=== PATIENT | male | born 1960 | race Caucasian/White ===

== ENCOUNTER 2018-08-18 09:18 | Outpatient (CLI) | payer BC ==
[2018-08-18 17:55] LABS: BASOPHILS % (AUTO) 0.9 %; EOSINOPHILS # (AUTO) 0.4 10^3/uL (0.0-0.7); EOSINOPHILS % (AUTO) 8.9 %; HGB - HEMOGLOBIN 12.5 g/dL (14.0-18.0); LYMPHOCYTES # (AUTO) 1.6 10^3/uL (1.5-3.5); LYMPHOCYTES % (AUTO) 33.5 %; MEAN CORPUSCULAR HGB CONC 30.4 g/dL (32.0-36.0); MEAN CORPUSCULAR VOLUME 72.3 fL (80.0-94.0); MEAN PLATELET VOLUME 8.5 fL (7.4-11.4); MONOCYTES # (AUTO) 0.4 10^3/uL (0.0-1.0); NEUTROPHILS # (AUTO) 2.3 10^3/uL (1.5-6.6); NEUTROPHILS % (AUTO) 48.7 %; PLT - PLATELET COUNT 259 10^3/uL (130-450); RED BLOOD COUNT 5.68 10^6/uL (4.70-6.10); RED CELL DISTRIBUTION WIDTH 18.9 % (12.0-15.0); WHITE BLOOD COUNT 4.7 x10^3/uL (4.8-10.8)
[2018-08-18 18:02] LABS: HB2 TOTAL 13.2 g/dL; HEMOGLOBIN A1C 0.56 g/dL
[2018-08-18 18:07] LABS: % IRON SATURATION 6 % (20-50); ALBUMIN 4.1 g/dL (3.2-5.5); ALBUMIN/GLOBULIN RATIO 1.3 (1.0-2.2); ALKALINE PHOSPHATASE 43 IU/L (42-121); ALT ALANINE AMINOTRANSFERASE 29 IU/L (10-60); AST ASPARTATE AMINOTRANSFERASE 23 IU/L (10-42); BILIRUBIN,TOTAL 0.7 mg/dL (0.2-1.0); BUN - BLOOD UREA NITROGEN 16 mg/dL (6-20); CALCIUM 9.1 mg/dL (8.5-10.3); CARBON DIOXIDE - CO2 25 mmol/L (21-32); CHLORIDE 107 mmol/L (101-111); CHOL/HDL RATIO 5.4 (<5.0); CHOLESTEROL 216 mg/dL; GFR - MDRD 77 (>89); GLUCOSE 102 mg/dL (70-100); HDL CHOLESTEROL 40 mg/dL; IRON 29 ug/dL (45-182); LDL CHOLESTEROL,CALCULATED 147 mg/dL; LDL/HDL RATIO 3.7 (<3.6); SODIUM 140 mmol/L (135-145); TOTAL IRON BINDING CAPACITY 475 ug/dL (250-450); TOTAL PROTEIN 7.2 g/dL (6.7-8.2); TRANSFERRIN 339 mg/dL (180-329); VLDL CHOLESTEROL 29 mg/dL
[2018-08-18 18:13] LABS: THYROID STIMULATING HORMONE 1.43 uIU/mL (0.34-5.60)
[2018-08-18 18:19] LABS: FERRITIN 8.3 ng/mL (23.9-336.2)
== END 2018-08-18 09:19 | disposition home or self-care (01) ==
LOC: LAB.F 09:18
PROVIDERS: ATTEND Registered Nurse
DX: Z00.00 Encounter for general adult medical examination without abnormal findings (principal); Z86.2 Personal history of diseases of the blood and blood-forming organs and certain disorders involving the immune mechanism
CPT/HCPCS: 36415; 80053; 80061; 82728; 83036; 83540; 83721; 84443; 84466; 85025; 86704

== ENCOUNTER 2018-08-30 07:48 | Outpatient (CLI) | payer BC ==
[2018-08-30 13:27] LABS: ABSOLUTE RETICS # AUTO 0.103 10^6/uL (0.020-0.110); BASOPHILS % (AUTO) 1.2 %; EOSINOPHILS % (AUTO) 6.8 %; HGB - HEMOGLOBIN 12.2 g/dL (14.0-18.0); LYMPHOCYTES % (AUTO) 28.3 %; MEAN CORPUSCULAR HEMOGLOBIN 22.8 pg (27.0-31.0); MEAN CORPUSCULAR VOLUME 71.1 fL (80.0-94.0); MEAN PLATELET VOLUME 8.5 fL (7.4-11.4); MEAN RETIC VALUE 106.3; MONOCYTES % (AUTO) 12.2 %; NEUTROPHILS % (AUTO) 51.5 %; PLT - PLATELET COUNT 283 10^3/uL (130-450); RED BLOOD COUNT 5.37 10^6/uL (4.70-6.10); RED CELL DISTRIBUTION WIDTH 18.5 % (12.0-15.0); WHITE BLOOD COUNT 5.3 x10^3/uL (4.8-10.8)
[2018-08-30 14:16] LABS: ABNORMAL LYMPHS % (MANUAL) 0 %; BAND NEUTROPHILS % (MANUAL) 0 %
[2018-08-30 16:00] LABS: BASOPHILS # (MANUAL) 0.1 10^3/uL (0-0.1); BASOPHILS % (MANUAL) 1 %; EOSINOPHILS # (MANUAL) 0.2 10^3/uL (0-0.7); LYMPHOCYTES # (MANUAL) 1.7 10^3/uL (1.5-3.5); LYMPHOCYTES % (MANUAL) 33 %; MONOCYTES # (MANUAL) 0.8 10^3/uL (0.0-1.0); NEUTROPHILS # (MANUAL) 2.5 10^3/uL (1.5-6.6); NEUTROPHILS % (MANUAL) 47 %; RBC MORPHOLOGY (MULTIPLE) 1+ MICROCYTOSIS (NORMAL)
[2018-08-30 16:01] LABS: DIFFERENTIAL COMMENT MANUAL DIFFERENTIAL; PLATELET ESTIMATE, MANUAL NORMAL (130-450,000) (NORMAL); PLATELET MORPHOLOGY NORMAL APPEARANCE (NORMAL)
== END 2018-08-30 07:49 | disposition home or self-care (01) ==
LOC: LAB.F 07:48
PROVIDERS: ATTEND Registered Nurse
DX: K64.9 Unspecified hemorrhoids (principal); D50.0 Iron deficiency anemia secondary to blood loss (chronic)
CPT/HCPCS: 36415; 82728; 85025; 85044

== ENCOUNTER 2019-12-06 19:27 | Outpatient (CLI) | payer BC ==
--- NOTE | 2019-12-06 19:28 | XRAY Report ---
PROCEDURE: Chest 2 View X-Ray INDICATIONS: COUGH-COVID PRECAUTIONS TECHNIQUE: 2 view(s) of the chest. COMPARISON: None. FINDINGS: Surgical changes and devices: None. Lungs and pleura: No pleural effusions or pneumothorax. Lungs are clear. Mediastinum: Mediastinal contours are normal. Heart size is normal. Bones and chest wall: No suspicious bony abnormalities. Soft tissues appear unremarkable. IMPRESSION: No acute cardiopulmonary findings. Reviewed by: Emma Truong MD on 12/06/2019 7:27 PM PDT Approved by: Emma Truong MD on 12/06/2019 7:27 PM PDT Station ID: [id number]
== END 2019-12-06 23:59 | disposition home or self-care (01) ==
LOC: DI.S 19:27
PROVIDERS: ATTEND Physician Assistant
DX: R05 Cough (principal)
CPT/HCPCS: 71046

== ENCOUNTER 2020-10-11 19:29 | Emergency (ER) | payer BC ==
--- OUTSIDE RECORDS SUMMARY | 2020-10-11 19:31 | EXTERNAL MEDICAL SUMMARY RPT | Continuity of Care Document ---
:1960 Demographics Phone Unavailable Preferred Language Unknown Marital Status Unknown Presybeterian Affiliation Unknown Race Unknown Ethnic Group Unknown Author Organization [place] Address [address] [place] [address] Phone Problems date description facility [id number] Chest pain, unspecified [facility] [place] [employer]
--- NOTE | 2020-10-11 19:53 | ED Physician Documentation ---
History of Present Illness - Stated complaint Stated Complaint: RT WRIST PX - Chief complaint Chief Complaint: Wound - Additonal information Additional information: 59-year-old male presents emergency department for evaluation of acute right wrist pain at the site where he had a radial arterial line placed after a recent myocardial infarction. The radial arterial line was removed on the of this month. Today he reports using his wrist a lot and having pain at the puncture site. However there is no swelling erythema or ecchymosis. He has had no falls or trauma. Patient denies chest pain or shortness of air. Review of Systems Constitutional: denies: Fever, Chills Eyes: reports: Reviewed and negative Ears: reports: Reviewed and negative Nose: reports: Reviewed and negative Throat: reports: Reviewed and negative Cardiac: reports: Reviewed and negative Respiratory: reports: Reviewed and negative GI: reports: Reviewed and negative : reports: Reviewed and negative Skin: reports: Lesions (Right wrist arterial puncture site.) Musculoskeletal: reports: Reviewed and negative Neurologic: reports: Reviewed and negative Psychiatric: reports: Reviewed and negative PD PAST MEDICAL HISTORY - Past Medical History Past Medical History: Yes Cardiovascular: [place] - Past Surgical History Past Surgical History: Yes Cardiovascular: Coronary stent - Allergies Allergies/Adverse Reactions: Allergies Allergy/AdvReac Type Severity Reaction Status Date / Time codeine AdvReac Nausea Verified 10/11/20 19:39 - Social History Does the pt smoke?: No Smoking Status: Never smoker Does the pt drink ETOH?: No Does the pt have substance abuse?: No - Immunizations Immunizations are current?: Yes - POLST Patient has POLST: No PD ED PE EXPANDED - General General: Alert, No acute distress - Extremities Extremities: Right wrist (Right radial arterial puncture site noted. No swelling erythema or hematoma noted. Normal movement of the wrist. There is mild tenderness over the puncture site only. 2+ radial and 1+ ulnar pulse. ) Results - Vitals Vitals: Vital Signs - 24 hr 10/11/20 10/11/20 19:35 19:50 Heart Rate 85 73 Respiratory 16 16 Rate Blood Pressure 145/92 H 149/86 H O2 Saturation 97 100 Oxygen O2 Source Room air PD MEDICAL DECISION MAKING - ED course Complexity details: reviewed results, re-evaluated patient, d/w patient ED course: 59-year-old male presents emergency department for concern that he may have injured his wrist at the site where an arterial catheter was placed after recent cardiac stenting after an [place]. This catheter was removed now 10 days ago. Today he reports that he used his wrist a lot keyboarding and using a mouse. Since then he has had some tenderness on the volar side of his wrist at the puncture site without hematoma development erythema or drainage. On exam he has a warm distal extremity with 2+ pulse. no e/o arterial injury. Advised to protect with wrist when keynoarding. tylenol for analgesia. Emergetn return precautions discussed Departure - Departure Disposition: 01 Home, Self Care Clinical Impression: Right wrist pain Comments: Old and you were seen today in the emergency department for pain in your right wrist at the site where you had an arterial catheter placed. As we discussed there is no bruising developing. You have a warm hand and very good pulses. Your skin and wrist is likely irritated from overuse today. If at any point you find that you have swelling, development of a bruise, develop a cold or painful hand please return immediately to the ER.
[2020-10-11 19:54] VITALS: BP 149/86
--- OUTSIDE RECORDS SUMMARY | 2020-10-11 19:57 | EXTERNAL MEDICAL SUMMARY RPT | Continuity of Care Document ---
:1960 Demographics Phone Unavailable Preferred Language Unknown Marital Status Unknown Baptist Affiliation Unknown Race Unknown Ethnic Group Unknown Author Organization [place] Address [address] [phone] Phone Problems date description facility [id number] Chest pain, unspecified [facility] [employer]
[2020-10-11] MEDS ORDERED: cefTRIAXone 1 GM in SODIUM CHLORIDE 0.9% MINIBAG 100 ML IV STA (20:04)
[2020-10-11] MEDS ORDERED: AZITHROMYCIN INJ 500 MG in SODIUM CHLORIDE 0.9% 250 ML IV STA (20:04)
== END 2020-10-11 20:04 | disposition home or self-care (01) ==
LOC: ED 19:29
DX: M25.531 Pain in right wrist (principal); Z95.5 Presence of coronary angioplasty implant and graft; I25.2 Old myocardial infarction
CPT/HCPCS: 99281

== ENCOUNTER 2021-03-07 13:30 | Outpatient (CLI) | payer BC ==
[2021-03-07 20:16] LABS: ALBUMIN 4.4 g/dL (3.2-5.5); ALBUMIN/GLOBULIN RATIO 1.6 (1.0-2.2); ALKALINE PHOSPHATASE 39 IU/L (42-121); ALT ALANINE AMINOTRANSFERASE 20 IU/L (10-60); AST ASPARTATE AMINOTRANSFERASE 16 IU/L (10-42); BILIRUBIN,TOTAL 1.1 mg/dL (0.2-1.0); BUN - BLOOD UREA NITROGEN 17 mg/dL (6-20); CALCIUM 9.2 mg/dL (8.5-10.3); CARBON DIOXIDE - CO2 27 mmol/L (21-32); CHLORIDE 106 mmol/L (101-111); CHOL/HDL RATIO 2.6 (<5.0); CHOLESTEROL 138 mg/dL; GFR - MDRD 76 (>89); GLUCOSE 92 mg/dL (70-100); HDL CHOLESTEROL 54 mg/dL; LDL CHOLESTEROL,CALCULATED 69 mg/dL; LDL/HDL RATIO 1.3 (<3.6); POTASSIUM 4.2 mmol/L (3.5-5.0); SODIUM 140 mmol/L (135-145); TOTAL PROTEIN 7.2 g/dL (6.7-8.2); TRIGLYCERIDES 77 mg/dL; VLDL CHOLESTEROL 15 mg/dL
== END 2021-03-07 13:31 | disposition home or self-care (01) ==
LOC: LAB.S 13:30
PROVIDERS: ATTEND Internal Medicine
DX: E78.2 Mixed hyperlipidemia (principal)
CPT/HCPCS: 36415; 80053; 80061; 83721

== ENCOUNTER 2021-10-16 13:24 | Emergency (ER) | payer BC ==
[2021-10-16] MEDS ORDERED: LIDOCAINE 2% URO-JET 5 ML SYRINGE UR STA (14:01)
--- NOTE | 2021-10-16 14:04 | ED Physician Documentation ---
History of Present Illness - Stated complaint Stated Complaint: MALE - Chief complaint Chief Complaint: Abd Pain - Additonal information Additional information: 60-year-old male presents emergency department for evaluation of difficulty ur inating. He underwent a hemorrhoidectomy at [facility] yesterday. He did undergo general anesthesia. He states that when he was in recovery he had a difficult time voiding but he was finally able to dribble a little bit of urine. However since returning home he has had increased difficulty urinating. He is only able to pee if he is in a warm shower and then a tiny amount comes out. Currently taking Colace, oxycodone as well as Flagyl postoperatively. No history of similar in the past. Denies any concerns with his prostate. He does have rectal pain but not more than expected postsurgery. No rectal bleeding. Review of Systems Constitutional: denies: Fever, Chills Throat: reports: Reviewed and negative Cardiac: reports: Reviewed and negative Respiratory: reports: Reviewed and negative : reports: Unable to Void. denies: Hematuria Skin: reports: Reviewed and negative Musculoskeletal: reports: Reviewed and negative PD PAST MEDICAL HISTORY - Past Medical History Cardiovascular: [place] - Past Surgical History Past Surgical History: Yes Cardiovascular: Coronary stent - Allergies Allergies/Adverse Reactions: Allergies Allergy/AdvReac Type Severity Reaction Status Date / Time codeine AdvReac Nausea Verified 10/16/21 13:45 - Social History Does the pt smoke?: No Smoking Status: Never smoker Does the pt drink ETOH?: No Does the pt have substance abuse?: No - Immunizations Immunizations are current?: Yes - POLST Patient has POLST: No PD ED PE EXPANDED - General General: Alert, No acute distress, Well developed/nourished - Cardiac Cardiac: Regular Rate, Radial strong equal, Pedal strong equal, Cap refill < 2 sec. No: Murmur Present - Respiratory Respiratory: Clear to ausultation ivonne. No: Distress, Labored - Abdomen Abdomen: Normal Bowel sounds, Tender to palpation (Suprapubic tenderness to palpation. Bladder is not felt to be markedly distended. No flank pain or CVA tenderness) - Rectal Rectal: Normal Tone. No: Hemorrhoid - Back Back: Normal exam - Derm Derm: Normal color, Warm and dry. No: Rash - Extremities Extremities: Normal. No: Deformity, Tenderness - Neuro Neuro: Alert and Oriented X 3, CNII-XII intact - GCS Eye Opening: Spontaneous Motor: Obeys Commands Verbal: Oriented Total: 15 Results - Vitals Vitals: Vital Signs - 24 hr 10/16/21 13:41 Temperature 36.4 C L Heart Rate 79 Respiratory 16 Rate Blood Pressure 137/99 H O2 Saturation 97 Oxygen O2 Source Room air - Labs Labs: Laboratory Tests 10/16/21 14:30 Urine Color YELLOW Urine Clarity CLEAR Urine pH 6.0 Ur Specific [place] 1.020 Urine Protein NEGATIVE Urine Glucose (UA) NEGATIVE Urine Ketones TRACE Urine Occult Blood NEGATIVE Urine Nitrite NEGATIVE Urine Bilirubin NEGATIVE Urine Urobilinogen 0.2 (NORMAL) Ur Leukocyte Esterase NEGATIVE Ur Microscopic Review NOT INDICATED Urine Culture Comments NOT INDICATED PD MEDICAL DECISION MAKING - ED course Complexity details: reviewed results, re-evaluated patient, considered differential, d/w patient, d/w family ED course: 60-year-old male presents emergency department for evaluation of difficulty urinating. He underwent hemorrhoidectomy at [facility] yesterday under general anesthesia. He did report that he initially had difficult time voiding postoperatively but was able to void a small amount however over the last 24 hours he has only had a small amount of urinary output and only when he is in the shower. He does endorse some rectal pain but not more than he would expect given the recent surgery. There is no rectal bleeding. Initial bladder scan revealed approximately 286 mL of urine. A Hastings catheter was placed with drainage of about 300 mils of urine. He does feel some relief of the urinary urgency but it is not fully resolved. Urinalysis shows no signs of infection. 9 I suspect that he has some urinary retention in part due to the oxycodone use postoperatively as well as the general anesthetic. As he continues to feel the need for opiate analgesia he will be discharged with a Hastings catheter in place. Patient is advised that over the next few days as his opiate use reduces he may go to a local walk-in clinic to have the Hastings catheter removed and trial voiding attempted. If at any point He develops severe worsening pain, has fevers or any concerns of infection he will return to the ER. He is advised to discuss this case with his surgeon at [facility]. Departure - Departure Disposition: 01 Home, Self Care Clinical Impression: Urinary retention with incomplete bladder emptying Condition: Stable Record reviewed to determine appropriate education?: Yes Comments: Garcia you are seen today in the emergency department for urinary retention. This can be a common complication postoperatively due to the anesthetics used. However the oxycodone that you are taking for pain can also cause urinary retention. We did place a Hastings catheter and attached to a leg bag today in the ER. You likely need to continue with the Hastings catheter until your rectal pain begins to improve and you have less use of the oxycodone. I would anticipate over the next 4 to 5 days this should improve. Once this improved proves we can try removing the Hastings catheter to see if you are able to urinate adequately. If at any point you find that you have worsening rectal or abdominal pain, develop fevers or have any concerns of infection in the urine please return im mediately to the emergency department. Please discuss this ED visit with your surgeon at [facility].
[2021-10-16 14:54] LABS: BILIRUBIN,URINE NEGATIVE (NEGATIVE); CLARITY,URINE CLEAR (CLEAR); GLUCOSE, URINE (UA) NEGATIVE (NEGATIVE); KETONES,URINE (UA) TRACE mg/dL (NEGATIVE); LEUKOCYTE ESTERASE, URINE NEGATIVE (NEGATIVE); NITRITE,URINE NEGATIVE (NEGATIVE); OCCULT BLOOD,URINE NEGATIVE (NEGATIVE); PROTEIN,URINE NEGATIVE (NEGATIVE); UROBILINOGEN,URINE 0.2 (NORMAL) E.U./dL (NORMAL)
[2021-10-16] MEDS ORDERED: HYDROmorphone 1 MG/ML CARPUJECT IM STA (15:01)
[2021-10-16] MEDS ORDERED: ONDANSETRON ODT 4 MG TABLET TL STA (15:14)
[2021-10-16 16:14] VITALS: BP 137/73
== END 2021-10-16 16:10 | disposition home or self-care (01) ==
LOC: ED 13:24
DX: R33.9 Retention of urine, unspecified (principal)
CPT/HCPCS: 51702; 81001; 81003; 87086; 99283; 99284

== ENCOUNTER 2021-10-18 08:12 | Emergency (ER) | payer BC ==
--- NOTE | 2021-10-18 09:21 | ED Physician Documentation ---
PD HPI MALE - Stated complaint Stated Complaint: CATH ISSUE - Chief complaint Chief Complaint: Abd Pain - History obtained from History obtained from: Patient, Family - History of Present Illness Timing - onset: Last night Timing - duration: Hours Timing - details: Gradual onset, Still present Associated symptoms: Unable to urinate, Russ problem Similar symptoms before: Diagnosis (urinary retention) Recently seen: Emergency Dept, Surgery - Additional information Additional information: 60-year-old Jose Suggs has had a recent hemorrhoidectomy done at [facility] 3 days ago. The following day he came to the emergency department here at [facility] with urinary retention and a Russ catheter was placed. He had marked relief of his symptoms at the time. Last night he had to go up to empty his leg bag twice and this morning the leg bag is full the tubing is full and urine will not go from the tubing into the leg bag. He does not have russ bag just the leg bag. Review of Systems Constitutional: denies: Fever Nose: denies: Congestion Throat: denies: Sore throat Respiratory: denies: Cough GI: denies: Abdominal Pain, Nausea, Vomiting : reports: Russ Problem Skin: denies: Rash Musculoskeletal: denies: Neck pain, Extremity pain Neurologic: denies: Generalized weakness, Focal weakness, Numbness PD PAST MEDICAL HISTORY - Past Medical History Past Medical History: Yes Cardiovascular: [place] - Past Surgical History Past Surgical History: Yes Cardiovascular: Coronary stent - Present Medications Home Medications: Ambulatory Orders Medication Instructions Recorded Confirmed Albuterol Sulfate [Proair Hfa 1 puffs INH Q4HR PRN 10/18/21 10/18/21 Inhaler] Clopidogrel [Plavix] 75 mg PO DAILY 10/18/21 10/18/21 Docusate Sodium 100Mg Capsule 100 mg PO BID 10/18/21 10/18/21 [Colace 100Mg Capsule] Losartan Potassium 12.5 mg PO DAILY 10/18/21 10/18/21 Montelukast [Singulair] 10 mg PO DAILY 10/18/21 10/18/21 Nitroglycerin [Nitrostat] 0.4 mg SL ONCE PRN 10/18/21 10/18/21 Ondansetron HCl 4 mg SL Q8HR PRN 10/18/21 10/18/21 Pantoprazole [Protonix] 40 mg PO DAILY 10/18/21 10/18/21 atenoloL [Tenormin] 25 mg PO DAILY 10/18/21 10/18/21 metroNIDAZOLE [Flagyl] 500 mg PO TID 10/18/21 10/18/21 oxyCODONE [Roxicodone] 5 mg PO Q4HR PRN 10/18/21 10/18/21 - Allergies Allergies/Adverse Reactions: Allergies Allergy/AdvReac Type Severity Reaction Status Date / Time codeine AdvReac Nausea Verified 10/16/21 13:45 oxycodone AdvReac Nausea Verified 10/18/21 08:38 - Social History Does the pt smoke?: No Smoking Status: Never smoker Does the pt drink ETOH?: No Does the pt have substance abuse?: No - Immunizations Immunizations are current?: Yes - POLST Patient has POLST: No PD ED PE NORMAL - Vitals Vital signs reviewed: Yes (hypertensive ) - General General: Alert and oriented X 3, No acute distress, Well developed/nourished - HEENT HEENT: Atraumatic, PERRL, EOMI - Neck Neck: Supple, no meningeal sign - Respiratory Respiratory: No respiratory distress - Back Back: No CVA TTP, No spinal TTP - Derm Derm: Normal color, Warm and dry, No rash - Extremities Extremities: No deformity, No edema - Neuro Neuro: Alert and oriented X 3, 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, No motor deficit, No sensory deficit, Normal speech Eye Opening: Spontaneous Motor: Obeys Commands Verbal: Oriented GCS Score: 15 - Psych Psych: Normal mood, Normal affect Results - Vitals Vitals: Vital Signs - 24 hr 10/18/21 08:25 Temperature 37.1 C Heart Rate 63 Respiratory 19 Rate Blood Pressure 161/60 H O2 Saturation 100 Oxygen O2 Source Room air - Labs Labs: Laboratory Tests 10/18/21 09:29 Urine Color DARK YELLOW Urine Clarity CLEAR Urine pH 6.0 Ur Specific [place] 1.025 Urine Protein 30 H Urine Glucose (UA) NEGATIVE Urine Ketones 40 H Urine Occult Blood LARGE H Urine Nitrite NEGATIVE Urine Bilirubin NEGATIVE Urine Urobilinogen 0.2 (NORMAL) Ur Leukocyte Esterase SMALL H Urine RBC 11-25 H Urine WBC 4-5 Ur Squamous Epith Cells NONE SEEN Urine Bacteria Few Ur Microscopic Review INDICATED Urine Culture Comments INDICATED PD MEDICAL DECISION MAKING - ED course Complexity details: considered differential, d/w patient ED course: russ drains to the tip of the tubing and not into the bag. The bag is replaced and the urine flows into the leg bag. He is set up with a regular russ bag for use at night. Departure - Departure Disposition: 01 Home, Self Care Clinical Impression: Urinary retention Russ catheter problem Qualifiers: Encounter type: initial encounter Qualified Code(s): T83.9XXA - Unspecified complication of genitourinary prosthetic device, implant and graft, initial encounter Condition: Stable Instructions: ED Catheter Care Russ, ED Retention Urinary Male Follow-Up: ARIELA RICHARDSON MD [Primary Care Provider] - Comments: Garcia, today it looks like the catheter was not working properly because the leg bag is too small for use at night. The recommendation is to use the regular Russ bag at night and use the leg bag during the day. Follow-up Dr. Richardson early this week for a Russ catheter removal and voiding trial.
[2021-10-18 09:42] LABS: GLUCOSE, URINE (UA) NEGATIVE (NEGATIVE); KETONES,URINE (UA) 40 mg/dL (NEGATIVE); LEUKOCYTE ESTERASE, URINE SMALL (NEGATIVE); NITRITE,URINE NEGATIVE (NEGATIVE); OCCULT BLOOD,URINE LARGE (NEGATIVE); PROTEIN,URINE 30 mg/dL (NEGATIVE); UROBILINOGEN,URINE 0.2 (NORMAL) E.U./dL (NORMAL)
[2021-10-18 09:46] LABS: CLARITY,URINE CLEAR (CLEAR)
[2021-10-18 09:51] LABS: BILIRUBIN,URINE NEGATIVE (NEGATIVE); ICTOTEST,URINE NEGATIVE
[2021-10-18 10:03] LABS: SQUAMOUS EPITHELIAL CELL,UR NONE SEEN (<= Few)
[2021-10-18 10:04] LABS: BACTERIA,URINE Few /HPF (None Seen)
[2021-10-18 10:28] VITALS: BP 122/64
== END 2021-10-18 10:33 | disposition home or self-care (01) ==
LOC: ED 08:12
DX: T83.091A Other mechanical complication of indwelling urethral catheter, initial encounter (principal); R33.9 Retention of urine, unspecified
CPT/HCPCS: 81001; 81003; 87086; 99281; 99283

== ENCOUNTER 2021-10-21 18:36 | Emergency (ER) | payer BC ==
[2021-10-21] MEDS ORDERED: CEPHALEXIN 250 MG Prepack 8 CAP BOTTLE PO STA (20:30)
[2021-10-21] MEDS ORDERED: ACETAMINOPHEN 325 MG TABLET PO STA (20:30)
--- NOTE | 2021-10-21 20:31 | ED Physician Documentation ---
<Carlos Coulter - Last Filed: 10/21/21 22:15> History of Present Illness - Stated complaint Stated Complaint: CATH ISSUE - Chief complaint Chief Complaint: General - History obtained from History obtained from: Patient (Hemorrhoidectomy about a week ago and then had a postoperative urinary retention. Today comes in because there is purulent drainage and inflammation around the glans. He would also like the catheter out. He has never had problems with urinary retention prior to this.) Review of Systems Constitutional: reports: Reviewed and negative Eyes: reports: Reviewed and negative Ears: reports: Reviewed and negative Nose: reports: Reviewed and negative Throat: reports: Reviewed and negative PD PAST MEDICAL HISTORY - Past Medical History Past Medical History: Yes Cardiovascular: [place] - Past Surgical History Past Surgical History: Yes Cardiovascular: Coronary stent - Present Medications Home Medications: Ambulatory Orders Medication Instructions Recorded Confirmed Albuterol Sulfate [Proair Hfa 1 puffs INH Q4HR PRN 10/18/21 10/18/21 Inhaler] Clopidogrel [Plavix] 75 mg PO DAILY 10/18/21 10/18/21 Docusate Sodium 100Mg Capsule 100 mg PO BID 10/18/21 10/18/21 [Colace 100Mg Capsule] Losartan Potassium 12.5 mg PO DAILY 10/18/21 10/18/21 Montelukast [Singulair] 10 mg PO DAILY 10/18/21 10/18/21 Nitroglycerin [Nitrostat] 0.4 mg SL ONCE PRN 10/18/21 10/18/21 Ondansetron HCl 4 mg SL Q8HR PRN 10/18/21 10/18/21 Pantoprazole [Protonix] 40 mg PO DAILY 10/18/21 10/18/21 atenoloL [Tenormin] 25 mg PO DAILY 10/18/21 10/18/21 metroNIDAZOLE [Flagyl] 500 mg PO TID 10/18/21 10/18/21 oxyCODONE [Roxicodone] 5 mg PO Q4HR PRN 10/18/21 10/18/21 cephALEXin [Keflex] 500 mg PO Q6H #20 cap 10/21/21 - Allergies Allergies/Adverse Reactions: Allergies Allergy/AdvReac Type Severity Reaction Status Date / Time codeine AdvReac Nausea Verified 10/21/21 18:45 oxycodone AdvReac Nausea Verified 10/21/21 18:45 - Social History Does the pt smoke?: No Smoking Status: Never smoker Does the pt drink ETOH?: No Does the pt have substance abuse?: No - Immunizations Immunizations are current?: Yes - POLST Patient has POLST: No PD ED PE NORMAL - Vitals Vital signs reviewed: Yes - General General: Alert and oriented X 3, No acute distress - Male Male : Other (The tip of the urethra is reddened with purulent drainage. Urine in bag is clear though. Hastings was removed during exam without issue.) - Neuro Neuro: Alert and oriented X 3, Normal speech PD MEDICAL DECISION MAKING - ED course ED course: 60-year-old gentleman presents requesting Hastings catheter out related to symptomatic traumatic urethritis from same and generalized discomfort. Catheter was removed and since he lives quite some way away from the hospital it seems reasonable to have him pass a voiding trial prior to discharge. He is pending this voiding trial on shift change. Departure - Departure Disposition: 01 Home, Self Care Clinical Impression: Urinary retention, Urethritis, not sexually transmitted Condition: Good Record reviewed to determine appropriate education?: Yes Instructions: ED Retention Urinary Male Prescriptions: cephALEXin [Keflex] 500 mg PO Q6H #20 cap Comments: I sent your prescription electronically to [facility] in [place]. Return if worsening, follow-up with your primary care physician next available appointment. <Abdiaziz Hernandez - Last Filed: 10/21/21 23:30> Results - Vitals Vitals: Vital Signs - 24 hr 10/21/21 18:41 Temperature 36.2 C L Heart Rate 84 Respiratory 17 Rate Blood Pressure 162/97 H O2 Saturation 97 Oxygen O2 Source Room air
[2021-10-21 23:36] VITALS: BP 165/96
== END 2021-10-21 23:39 | disposition home or self-care (01) ==
LOC: ED 18:36
DX: T83.098A Other mechanical complication of other urinary catheter, initial encounter (principal); T83.84XA Pain due to genitourinary prosthetic devices, implants and grafts, initial encounter; N34.2 Other urethritis; Y83.8 Other surgical procedures as the cause of abnormal reaction of the patient, or of later complication, without mention of misadventure at the time of the procedure
CPT/HCPCS: 99282; 99283; A9270